=== PATIENT | female | born 2000 | race Caucasian/White ===

== ENCOUNTER 2019-01-05 14:02 | Emergency (ER) | payer OTHER ==
[~2019-01-05] VITALS: Ht 165.1 cm; Wt 83.9 kg
[2019-01-05 14:45] VITALS: BP 125/80
[2019-01-05] MEDS ORDERED: ZOFRAN IV STA (14:48)
[2019-01-05] MEDS ORDERED: NS 1000ML 1,000 ML IV STA (14:48)
[2019-01-05] MEDS ORDERED: NS 1000ML 1,000 ML ONE (14:53)
[2019-01-05] MEDS ORDERED: ZOFRAN ONE (14:53)
[2019-01-05 15:04] LABS: BASOPHIL % 0.2 % (0.0-0.2); EOSINOPHIL # 0.4 10^3/uL (0.0-0.2); EOSINOPHIL % 2.4 % (0.0-5.0); HEMOGLOBIN 12.5 g/dL (12.4-14.8); LYMPHOCYTES # 1.8 10^3/uL (1.2-5.2); LYMPHOCYTES % 11.5 % (24.0-44.0); MEAN CELL HGB 31.3 pg (26-34); MEAN CELL HGB CONCENTRATION 35.2 g/dL (33-37); MEAN PLATELET VOLUME 10.3 fL (7.8-11.0); MONOCYTES # 0.9 10^3/uL (0.0-0.4); MONOCYTES % 5.8 % (5.0-12.0); NEUTROPHIL # 12.2 10^3/uL (1.8-8.0); NEUTROPHILS % 79.5 % (41.0-85.0); RED CELL DISTRIBUTION WIDTH 12.6 % (11.5-14.5); WHITE BLOOD CELL 15.3 10^3/uL (4.5-12.5)
[2019-01-05 15:20] LABS: CALCIUM 9.5 mg/dL (8.4-10.5); CARBON DIOXIDE 22.2 mmol/L (20.0-32)
[2019-01-05 15:25] LABS: BILIRUBIN,URINE NEGATIVE (NEGATIVE); UROBILINOGEN,URINE NORMAL (NEGATIVE)
--- NOTE | 2019-01-05 15:25 | ER.PDOC ---
General Chief Complaint: Female Urogenital Problems Stated Complaint: VOMITING; LESS THAN 20 WEEKS Time seen by MD: 15:23 Source: patient Exam Limitations: no limitations History of Present Illness Initial Comments Nausea and vomiting for weeks, patient is 15 weeks . Severity/Quality: moderate LMP (females 10-50): Associated Symptoms: dysuria, urinary frequency Past Medical History Medical History: asthma Surgical History: no surgical history LMP (females 10-50): 09/11/18 Social History Smoking: non-smoker Alcohol Use: none Drug Use: none Review of Systems Constitutional: no symptoms reported EENTM: no symptoms reported Respiratory: no symptoms reported Cardiovascular: no symptoms reported Gastrointestinal: see HPI Genitourinary: see HPI All Other Systems: Reviewed and Negative Physical Exam General Appearance: No Apparent Distress, WD/WN Neck: nml inspection, non-tender Cardiovascular/Respiratory: Regular Rate, Rhythm, No M/R/G, Normal Peripheral Pulses, No JVD, Normal Breath Sounds, No Respiratory Distress Abdomen: Normal Bowel Sounds, Non Tender, Soft, No Organomegaly, No Pulsatile Mass, Other (gravid uterus) Back: nml inspection Extremities: Normal Range of Motion, Non-Tender, Normal Inspection, No Pedal Edema, No Calf Tenderness, Normal Capillary Refill Neurologic/Psychiatric: [place] customs and border officer II-XII NML as Tested, No Motor/Sensory Deficits, Alert, Normal Mood/Affect, Oriented x 3 Skin: Normal Color, Warm/Dry Lymphatic: No Adenopathy Results/Orders Results/Orders Orders - CEDRIC BARAJAS MD Cbc With Auto Diff (01/05/19 14:48) Comprehensive Metabolic Panel (01/05/19 14:48) Urinalysis (01/05/19 14:48) 0.9 % Sodium Chloride (Ns 1000ml) (01/05/19 14:48) Ondansetron Hcl (Zofran) (01/05/19 14:48) 0.9 % Sodium Chloride (Ns 1000ml) (01/05/19 14:53) Ondansetron Hcl (Zofran) (01/05/19 14:53) Urine Culture (01/05/19 14:31) Vital Signs Date Time Temp Pulse Resp B/P (MAP) Pulse Ox O2 Delivery O2 Flow Rate FiO2 01/05/19 14:45 98.1 86 18 125/80 (95) 99 Room Air 98.1 6/24/19 14:43 98.1 86 18 99 Room Air 98.1 01/05/19 14:42 98.1 86 18 98.1 Administered Medications Medications (Trade) Dose Ordered Sig/Darlene Route PRN Reason Start Time Stop Time Status Last Admin Dose Admin Ondansetron HCl (Zofran) 4 mg STAT STAT IV 01/05/19 14:48 01/05/19 14:50 DC 01/05/19 15:03 4 MG Sodium Chloride 1,000 ml @ 1,200 mls/hr Q50M STAT IV 01/05/19 14:48 01/05/19 15:37 DC 01/05/19 15:03 1,200 MLS/HR Laboratory Tests Test 01/05/19 14:31 01/05/19 14:59 Urine Collection Type VOID Urine Color YELLOW (YELLOW) Urine Appearance HAZY (CLEAR) H Urine Bilirubin NEGATIVE MG/DL (NEGATIVE) Urine Ketones NEGATIVE (NEGATIVE) Urine Specific [place] 1.010 (1.005-1.035) Urine pH 8 (5.0-6.0) Urine Protein 15 mg/dL (NEGATIVE) H Urine Urobilinogen NORMAL (NEGATIVE) Urine Nitrate NEGATIVE (NEGATIVE) Urine Leukocyte Esterase 500/uL 2+ (NEGATIVE) Urine Blood 50 2+ (NEGATIVE) H Urine RBC 2-5 RBC/HPF (NONE SEEN) Urine WBC TNTC WBC/HPF (0-2) H Urine Squamous Epithelial Cells FEW #/HPF (FEW) Urine Bacteria MANY (NONE SEEN) H Urine Glucose NORMAL (NEGATIVE) White Blood Count 15.3 10^3/uL (4.5-12.5) H Red Blood Count 3.99 10^6/uL (4.00-5.20) L Hemoglobin 12.5 g/dL (12.4-14.8) Hematocrit 35.5 % (36.0-46.0) L Mean Corpuscular Volume 89.0 fL (78-100) Mean Corpuscular Hemoglobin 31.3 pg (26-34) Mean Corpuscular Hemoglobin Concent 35.2 g/dL (33-37) Red Cell Distribution Width 12.6 % (11.5-14.5) Platelet Count 264 10^3/uL (150-400) Mean Platelet Volume 10.3 fL (7.8-11.0) Neutrophils (%) (Auto) 79.5 % (41.0-85.0) Lymphocytes (%) (Auto) 11.5 % (24.0-44.0) L Monocytes (%) (Auto) 5.8 % (5.0-12.0) Neutrophils # (Auto) 12.2 10^3/uL (1.8-8.0) H Lymphocytes # (Auto) 1.8 10^3/uL (1.2-5.2) Monocytes # (Auto) 0.9 10^3/uL (0.0-0.4) H Absolute Immature Granulocyte (auto 0.09 10^3 u/L (0-2) Immature Granulocytes % 0.60 % (0.00-0.50) H Eosinophils % 2.4 % (0.0-5.0) Basophils % 0.2 % (0.0-0.2) Basophils # 0.0 10^3/uL (0.0-0.1) Eosinophil Count 0.4 10^3/uL (0.0-0.2) H Sodium Level 138 mmol/L (132-145) Potassium Level 3.7 mmol/L (3.6-5.2) Chloride Level 106.0 mmol/L (96-109) Carbon Dioxide Level 22.2 mmol/L (20.0-32) Anion Gap 13.5 Blood Urea Nitrogen 3 mg/dL (7-18) L Creatinine 0.59 mg/dL (0.59-1.40) Estimated GFR () 158.9 (>/=60) BUN/Creatinine Ratio 5.0 Glucose Level 81 mg/dL (70-110) Calcium Level 9.5 mg/dL (8.4-10.5) Total Bilirubin 0.3 mg/dL (0.2-1.0) Aspartate Amino Transferase (AST) 37 U/L (0-35) H Alanine Aminotransferase (ALT) 69 U/L (12-78) Alkaline Phosphatase 61 U/L (50-136) Total Protein 7.1 g/dL (6.4-8.2) Albumin 3.2 g/dL (3.4-5.0) L Globulin 3.9 Progress Progress Patient feeling better after hydration and Zofran. Course Vitals & review Data Vital Sign - Last 24 Hours 601/05/19 01/05/19 14:42 14:43 14:45 Temp 98.1 98.1 98.1 98.1 98.1 98.1 Pulse 86 86 86 Resp 18 18 18 B/P (MAP) 125/80 (95) Pulse Ox 99 99 O2 Delivery Room Air Room Air Laboratory Tests Test 01/05/19 14:31 01/05/19 14:59 Urine Collection Type VOID Urine Color YELLOW Urine Appearance HAZY Urine Bilirubin NEGATIVE MG/DL Urine Ketones NEGATIVE Urine Specific [place] 1.010 Urine pH 8 Urine Protein 15 mg/dL Urine Urobilinogen NORMAL Urine Nitrate NEGATIVE Urine Leukocyte Esterase 500/uL 2+ Urine Blood 50 2+ Urine RBC 2-5 RBC/HPF Urine WBC TNTC WBC/HPF Urine Squamous Epithelial Cells FEW #/HPF Urine Bacteria MANY Urine Glucose NORMAL White Blood Count 15.3 10^3/uL Red Blood Count 3.99 10^6/uL Hemoglobin 12.5 g/dL Hematocrit 35.5 % Mean Corpuscular Volume 89.0 fL Mean Corpuscular Hemoglobin 31.3 pg Mean Corpuscular Hemoglobin Concent 35.2 g/dL Red Cell Distribution Width 12.6 % Platelet Count 264 10^3/uL Mean Platelet Volume 10.3 fL Neutrophils (%) (Auto) 79.5 % Lymphocytes (%) (Auto) 11.5 % Monocytes (%) (Auto) 5.8 % Neutrophils # (Auto) 12.2 10^3/uL Lymphocytes # (Auto) 1.8 10^3/uL Monocytes # (Auto) 0.9 10^3/uL Absolute Immature Granulocyte (auto 0.09 10^3 u/L Immature Granulocytes % 0.60 % Eosinophils % 2.4 % Basophils % 0.2 % Basophils # 0.0 10^3/uL Eosinophil Count 0.4 10^3/uL Sodium Level 138 mmol/L Potassium Level 3.7 mmol/L Chloride Level 106.0 mmol/L Carbon Dioxide Level 22.2 mmol/L Anion Gap 13.5 Blood Urea Nitrogen 3 mg/dL Creatinine 0.59 mg/dL Estimated GFR () 158.9 BUN/Creatinine Ratio 5.0 Glucose Level 81 mg/dL Calcium Level 9.5 mg/dL Total Bilirubin 0.3 mg/dL Aspartate Amino Transf (AST/SGOT) 37 U/L Alanine Aminotransferase (ALT/SGPT) 69 U/L Alkaline Phosphatase 61 U/L Total Protein 7.1 g/dL Albumin 3.2 g/dL Globulin 3.9 Sepsis Infection Criteria Pres: None O2 Sat by Pulse Oximetry: 99 Departure Time of Disposition: 15:51 Disposition: 01 HOME, SELF-CARE Impression: Primary Impression: UTI (urinary tract infection) Additional Impression: Nausea and vomiting in prior to 22 weeks gestation Condition: Improved Referrals: PCP,UNKNOWN (PCP) PRIMARY CARE PROVIDER Additional Instructions: Macrobid Zofran F/U with your OB Provider in 2-3 days Duration or Time Spent with Pa: 60 mins Problem Qualifiers Primary Impression: UTI (urinary tract infection) Urinary tract infection type: site unspecified Hematuria presence: with hematuria Qualified Codes: N39.0 - Urinary tract infection, site not specified; R31.9 - Hematuria, unspecified CEDRIC BARAJAS MD Jan 05, 2019 15:25
[2019-01-05 15:32] LABS: APPEARANCE,URINE HAZY (CLEAR); UA COLOR YELLOW (YELLOW)
[2019-01-05] MEDS ORDERED: ROCEPHIN 1,000 MG in NS 100ML 100 ML IV STA (15:52)
[2019-01-05] MEDS ORDERED: NS 100ML 100 ML IV ONE (15:56)
[2019-01-05] MEDS ORDERED: ROCEPHIN ONE (15:57)
[2019-01-05 16:12] VITALS: BP 109/68
[2019-01-05 16:13] VITALS: BP 125/80
== END 2019-01-05 16:19 | disposition home or self-care (01) ==
LOC: ER 14:02
DX: O23.42 Unspecified infection of urinary tract in pregnancy, second trimester (principal); O21.8 Other vomiting complicating pregnancy; O99.512 Diseases of the respiratory system complicating pregnancy, second trimester; J45.909 Unspecified asthma, uncomplicated; Z79.899 Other long term (current) drug therapy; Z3A.15 15 weeks gestation of pregnancy
CPT/HCPCS: 36415; 80053; 81000; 85025; 87077; 87086; 87186; 96361; 96374; 96375; 99284; J0696; J2405; J7030; J7050